=== PATIENT | female | born 1990 | race African-American/Black ===

== ENCOUNTER 2022-09-05 08:16 | Day surgery (SDC) | payer OTHER ==
[2022-08-27 18:36] VITALS: BMI 29.6
[2022-09-05] MEDS ORDERED: PROPOFOL 20 ML ONE (09:07)
[2022-09-05] MEDS ORDERED: MIDAZOLAM HCL 2 MG/2 ML SINGLE DOSE VIAL ONE (09:07)
[2022-09-05] MEDS ORDERED: ceFAZolin SODIUM 1 GM VIAL ONE (09:08)
[2022-09-05] MEDS ORDERED: LIDOCAINE HCL 2% JELLY 11 ML TP ONE (09:08)
[2022-09-05] MEDS ORDERED: KETOROLAC TROMETHAMINE 30 MG/1 ML VIAL ONE (09:08)
[2022-09-05] MEDS ORDERED: ONDANSETRON 4 MG/2 ML VIAL ONE ×2 (09:08→10:55)
[2022-09-05] MEDS ORDERED: DEXAMETHASONE SOD PHOSPHATE 4 MG/1 ML VIAL ONE (09:08)
[2022-09-05] MEDS ORDERED: ROPIVACAINE HCL 0.5% 30ML VIAL ONE (10:19)
[2022-09-05] MEDS ORDERED: ONDANSETRON 4 MG/2 ML VIAL IVPUSH PRN (10:36)
[2022-09-05] MEDS ORDERED: PROMETHAZINE HCL 25 MG/1 ML VIAL IVPUSH PRN (10:36)
[2022-09-05] MEDS ORDERED: oxyCODONE HCL 5 MG TABLET PO PRN ×2 (10:36)
[2022-09-05] MEDS ORDERED: FENTANYL CITRATE/PF 50 MCG/ML VIAL ONE (10:55)
[2022-09-05 11:39] VITALS: RESP 16; TEMP 96.7
[2022-09-05 12:16] VITALS: BP 120/68; PULSE 61
[2022-09-05] MEDS ORDERED: BUPIVACAINE HCL/PF 0.25% (2.5MG/ML) 10 ML VIAL ONE (13:51)
== END 2022-09-05 12:10 | disposition home or self-care (01) ==
LOC: FASU 08:16
PROVIDERS: ATTEND Orthopaedic Surgery Hand Surgery
PROC: 0RBP4ZZ Excision of Left Wrist Joint, Percutaneous Endoscopic Approach (ICD-10-PCS; principal; 2022-09-05 09:54)
DX: S63.522A Sprain of radiocarpal joint of left wrist, initial encounter (principal); M65.9 Synovitis and tenosynovitis, unspecified; X58.XXXA Exposure to other specified factors, initial encounter; Y93.9 Activity, unspecified; Y92.9 Unspecified place or not applicable
CPT/HCPCS: 84703; 94760